=== PATIENT | male | born 1975 | race Caucasian/White ===

== ENCOUNTER 2017-03-10 01:41 | Emergency (ER) | payer OTHER, MEDICAID ==
[~2017-03-10] VITALS: Ht 180.3 cm; Wt 108.9 kg
[~2017-03-10 01:41] MED LIST: ALBUAER3 IN; ATO40T PO; DIVA500T7 PO; LEVE500T22 PO; LEVO500T21 PO; METF-370 PO; METH4PAK PO
[2017-03-10 02:12] LABS: Basophils # (auto) 0 uL; Basophils % (auto) 0.3 % (0.0-2.0); CONDITION Y; Eosinophils # (auto) 0 uL; Eosinophils % (auto) 0.5 % (0.0-7.0); Hematocrit 49.4 % (41.0-53.0); Hemoglobin 16.8 g/dL (13.5-17.5); Lymphocytes # (auto) 3.3 uL; Lymphocytes % (auto) 32.9 % (10.0-50.0); Mean Corpuscular Volume 82.3 fL (80.0-100.0); Monocytes # (auto) 0.5 uL; Monocytes % (auto) 4.6 % (0.0-12.0); Neutrophils # (auto) 6.2 uL; Neutrophils % (auto) 61.7 % (37.0-80.0); Platelet Count (auto) 174 10^3/uL (140-450); Red Cell Distribution Width 13.4 % (11.6-16.0)
[2017-03-10 02:54] LABS: Albumin 3.8 g/dL (3.4-5.0); BUN/Creatinine Ratio 15.4; Calcium 7.9 mg/dL (8.5-10.1); Potassium 3.7 mmol/L (3.5-5.1)
[2017-03-10 02:57] LABS: Bilirubin, Total 0.5 mg/dL (0.2-1.0); Total Protein 6.8 g/dL (6.4-8.2)
[2017-03-10 08:00] VITALS: BP 139/70
== END 2017-03-10 09:20 | disposition home or self-care (01) ==
LOC: EDBD 01:41 → ER 01:47
DX: G40.909 Epilepsy, unspecified, not intractable, without status epilepticus (principal); E11.65 Type 2 diabetes mellitus with hyperglycemia; F41.9 Anxiety disorder, unspecified; G93.89 Other specified disorders of brain; J45.909 Unspecified asthma, uncomplicated; E78.5 Hyperlipidemia, unspecified
CPT/HCPCS: 36415; 70450; 80053; 80164; 82542; 85025

== ENCOUNTER 2017-04-28 03:11 | Emergency (ER) | payer OTHER, MEDICARE, MEDICAID ==
[~2017-04-28] VITALS: Ht 177.8 cm; Wt 105.2 kg
[2017-04-28] MEDS ORDERED: PROPOFOL 100 ML IV ONE ×2 (03:17→05:01)
[2017-04-28] MEDS ORDERED: SODIUM BICARBONATE 8.4% INJ 50ML SYRINGE ONE (03:19)
[2017-04-28] MEDS ORDERED: PROPOFOL 100 ML IV SCH ×2 (03:27→04:21)
[2017-04-28] MEDS ORDERED: SODIUM BICARBONATE 8.4 % INJ 50ML VIAL IV ONE (03:30)
[2017-04-28 03:36] LABS: HCO3 17.2 mmol/L (22-26.0); MODE AMBU BAG; PCO2 49.6 mmHg (35.0-45.0); PCO2(T) 49.6 mmHg (35.0-45.0); PO2 61.6 mmHg (80.0-100.0); PO2(T) 61.6 mmHg (80.0-100.0); Sample Type Arterial; Total Hemoglobin > 21.90 g/dL (12.00-18.00); pH 7.159 (7.350-7.450)
[2017-04-28] MEDS ORDERED: LEVOFLOXACIN 750MG 150 ML IV ONE (04:00)
[2017-04-28] MEDS ORDERED: LEVETIRACETAM 500 MG/5ML INJ IV ONE (04:13)
[2017-04-28] MEDS ORDERED: LEVETIRACETAM INJ 1,000 MG in SODIUM CHL 0.9% 100 ML IV ONE (04:15)
[2017-04-28 04:19] VITALS: BP 156/82
[2017-04-28] MEDS ORDERED: PROPOFOL 10 MG/ML 20 ML IV ONE (04:30)
[2017-04-28 05:05] LABS: Basophils # (auto) 0.1 uL; Basophils % (auto) 0.6 % (0.0-2.0); CONDITION Y; DEFINITIVE SEE PRINTOUT; Eosinophils # (auto) 0 uL; Eosinophils % (auto) 0.2 % (0.0-7.0); Hematocrit 55.4 % (41.0-53.0); Hemoglobin 18.5 g/dL (13.5-17.5); Lymphocytes # (auto) 3.1 uL; Lymphocytes % (auto) 25.2 % (10.0-50.0); Mean Corpuscular Hemoglobin 27.8 pg (28.0-32.0); Mean Corpuscular Hgb Conc. 33.5 g/dL (32.0-36.0); Mean Corpuscular Volume 83.1 fL (80.0-100.0); Mean Platelet Volume 9.6 fL (7.4-10.4); Monocytes # (auto) 0.3 uL; Monocytes % (auto) 2.3 % (0.0-12.0); Neutrophils # (auto) 8.7 uL; Neutrophils % (auto) 71.7 % (37.0-80.0); Platelet Count (auto) 139 10^3/uL (140-450); Red Cell Distribution Width 13.8 % (11.6-16.0); SUSPECT SEE PRINTOUT; White Blood Cell 12.2 10^3/uL (4.4-10.8)
[2017-04-28 05:21] LABS: INR 1.15 (0.9-1.15); Partial Thromboplastin Time 22.7 sec (22.64-33.71); Prothrombin Time 12.6 sec (9.37-12.3)
[2017-04-28 05:23] LABS: Albumin 2.5 g/dL (3.4-5.0); BUN/Creatinine Ratio 11.9; Magnesium 1.7 mg/dL (1.6-2.6); Potassium 4.2 mmol/L (3.5-5.1)
[2017-04-28 05:28] LABS: Bilirubin, Total 0.6 mg/dL (0.2-1.0); Calcium 5.4 mg/dL (8.5-10.1); Total Protein 4.9 g/dL (6.4-8.2)
[2017-04-28 05:29] LABS: B-Type Natriuretic Peptide < 5 pg/mL (0-100); Temperature: 22.2 C (20.0-25.0)
== END 2017-04-28 04:45 | disposition short-term general hospital (02) ==
LOC: ER 03:11 → EDBD 03:11 → ER 04:45
DX: T81.52 Obstruction due to foreign body accidentally left in body following procedure (principal); G80.9 Cerebral palsy, unspecified; J69.0 Pneumonitis due to inhalation of food and vomit; J96.01 Acute respiratory failure with hypoxia; Z88.0 Allergy status to penicillin; Z79.899 Other long term (current) drug therapy; G40.909 Epilepsy, unspecified, not intractable, without status epilepticus
CPT/HCPCS: 31500; 36415; 36600; 71010; 80053; 82805; 82962; 83735; 83880; 84484; 85025; 85610; 85730; 93005; 96365; 96375; 99285; J1953; J1956; J2704; 94002